=== PATIENT | male | born 1985 | race Hispanic/Latino ===

== ENCOUNTER 2022-12-28 04:04 | Emergency (ER) | payer OTHER, SELFPAY ==
--- OUTSIDE RECORDS SUMMARY | 2022-12-28 04:06 | XMS REPORT | Continuity of Care Document ---
:[address] [facility] t Address [address] [place] [address] Care Team Providers Name Role Phone Jey Hernandez MD Attending Clinician JEY HERNANDEZ Attending Clinician Unavailable Doctor Unassigned, [place] Attending Clinician Unavailable Problems This patient has no known problems. Allergies, Adverse Reactions, Alerts Allergy Allergy Status Severity Reaction(s) Onset Inactive Treating Comm ents Source Name Type Date Date Clinician NO KNOWN Drug Active Univers ALLERGIE Class ity of [facility] Social History Social Habit Start Date Stop Date Quantity Comments Source Sex Assigned At Uni [facility] Exposure to SARS-CoV-2 Not sure [facility] Smoking Status Start Date Stop Date Source Current some day smoker 2016-03-08 00:00:00 [facility] Medications Ordered Filled Start Stop Current Ordering Indication Dosage Frequency Signature Comments Components Source Medication Medication Date Date Medication? Clinician (SIG) Name Name tobramycin 2020-0 2020- No [id number] 2[drp] Place 2 Univers 0.3 % 06-22 [id number] Drops in ity of ophthalmic 00:00: 04:59 right eye [place] drops 00 :00 2 (two) Medical times Branch daily for 5 days. Continue until you follow up with eye doctor. benzonatate 2016-0 Yes 100mg Take 1 Uni vers (TESSALON 5-07 capsule by ity of PERLES) 100 00:00: mouth 3 Ruperto as mg capsule 00 (three) Medica l times Branch daily as needed for Cough. benzonatate 2016-0 Yes 100mg Take 1 Uni vers (TESSALON 5-07 capsule by ity of [place]) 100 00:00: mouth 3 Ruperto as mg capsule 00 (three) Medica l times Branch daily as needed for Cough. Vital Signs Vital Name Observation Time Observation Value Comments Source Systolic blood 2020-06-22 12:25:00 119 mm[Hg] Univer sity of pressure [facility] Diastolic blood 2020-06-22 12:25:00 80 mm[Hg] Unive rsity of pressure [facility] Heart rate 2020-06-22 12:25:00 57 /min Universi ty [facility] Body temperature 2020-06-22 12:25:00 36.39 Mariela [facility] Respiratory rate 2020-06-22 12:25:00 18 /min [facility] Body weight 2020-06-22 12:25:00 74.844 kg Universi ty [facility] BMI 2020-06-22 12:25:00 238.66 kg/m2 [facility] O[facility] saturation in 2020-06-22 12:25:00 100 /min [facility] blood by [facility] Pulse oximetry Branch Procedures Procedure Date / Time Performed Performing Clinician Sour e NOTICE OF PRIVACY 2020-06-22 12:14:06 Doctor Unassigned, No [facility] PRACTICES Name [facility] Branch CONSENT/REFUSAL FOR 2020-06-22 12:13:56 Doctor Unassigned, No [facility] DIAGNOSIS AND Name Medical Branch TREATMENT Encounters Start End Encounter Admission Attending Care Care Encounter Source Date/Time Date/Time Type Type Clinicians Facility Department ID 2020-06-22 2020-06-22 Emergency [facility] [id number] Univers 07:26:00 08:41:00 Jey Vicente [id number] i ty of [place] [id number] [facility] [id number] [facility] 084 Branch 2020-06-22 2020-06-22 Emergency X [facility] ERT [id number] Univers 07:26:00 07:26:00 JEY harvey of [facility] 2020-06-22 2020-06-22 Orders Doctor MONSALVE [id number] Univers 00:00:00 00:00:00 Only Unassigned, SUSI [id number] ity of [place] [facility] [id number] [facility] [id number] [facility] 009 Branch Results This patient has no known results.
[2022-12-28] MEDS ORDERED: LIDOCAINE 1% MPF 5 ML VIAL ONE (04:18)
[2022-12-28] MEDS ORDERED: TDAP (DIPHTH,PERTUSS(ACELL),TET VAC) 0.5 ML VIAL IMVAC ONE (04:58)
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
[2022-12-28 05:58] VITALS: TEMP 97.8
[2022-12-28 06:01] VITALS: BP 111/64; O2SAT 94
== END 2022-12-28 05:22 | disposition home or self-care (01) ==
LOC: ER 04:04
PROC: 0HQ1XZZ Repair Face Skin, External Approach (ICD-10-PCS; principal; 2022-12-28)
DX: S01.81XA Laceration without foreign body of other part of head, initial encounter (principal); S01.112A Laceration without foreign body of left eyelid and periocular area, initial encounter; Z23 Encounter for immunization
CPT/HCPCS: 90471; 99283; J2001

== ENCOUNTER 2023-01-03 06:17 | Emergency (ER) | payer SELFPAY ==
--- OUTSIDE RECORDS SUMMARY | 2023-01-03 06:19 | XMS REPORT | Continuity of Care Document ---
:1985 Author Organization [facility] t Address [address] [facility] [address] [place] [address] Care Team Providers Name Role Phone Jey Hernandez MD Attending Clinician JEY HERNANDEZ Attending Clinician Unavailable Doctor Unassigned, [place] Attending Clinician Unavailable Problems This patient has no known problems. Allergies, Adverse Reactions, Alerts Allergy Allergy Status Severity Reaction(s) Onset Inactive Treating Comm ents Source Name Type Date Date Clinician NO KNOWN Drug Active Univers ALLERGIE Class ity of [facility] Social History Social Habit Start Date Stop Date Quantity Comments Source Sex Assigned At Uni [facility] Exposure to SARS-CoV-2 Not sure [facility] Smoking Status Start Date Stop Date Source Current some day smoker 2016-03-08 00:00:00 [facility] Medications Ordered Filled Start Stop Current Ordering Indication Dosage Frequency Signature Comments Components Source Medication Medication Date Date Medication? Clinician (SIG) Name Name tobramycin 2020-0 2020- No [id number] 2[drp] Place 2 Univers 0.3 % 06-22 [id number] Drops in ity of ophthalmic 00:00: 04:59 [...] 12:25:00 119 mm[Hg] Univer sity of pressure [facility] Diastolic blood 2020-06-22 12:25:00 80 mm[Hg] Unive rsity of pressure [facility] Heart rate 2020-06-22 12:25:00 57 /min Universi ty of [facility] Body temperature 2020-06-22 12:25:00 36.39 Mariela [facility] Respiratory rate 2020-06-22 12:25:00 18 /min [facility] Body weight 2020-06-22 12:25:00 74.844 kg Universi ty [facility] BMI 2020-06-22 12:25:00 238.66 [facility] in 2020-06-22 12:25:00 100 /min [facility] blood by [facility] Pulse oximetry Branch Procedures Procedure Date / Time Performed Performing Clinician Sour e NOTICE OF PRIVACY 2020-06-22 12:14:06 Doctor Unassigned, No Univ [facility] Name [facility] Branch CONSENT/REFUSAL FOR 2020-06-22 12:13:56 Doctor Unassigned, No [facility] DIAGNOSIS AND Name Medical Branch TREATMENT Encounters Start End Encounter Admission Attending Care Care Encounter Source Date/Time Date/Time Type Type Clinicians Facility Department ID 2020-06-22 2020-06-22 Emergency [facility] [id number] Univers 07:26:00 08:41:00 Jey Vicente [id number] i ty of [place] [id number] [facility] [id number] [facility] 084 Branch 2020-06-22 2020-06-22 Emergency X [facility] ERT [id number] Univers 07:26:00 07:26:00 JEY harvey of [facility] 2020-06-22 2020-06-22 Orders Doctor MONSALVE [id number] Univers 00:00:00 00:00:00 Only Unassigned, SUSI [id number] ity of [place] [facility] [id number] [facility] [id number] [facility] 009 Branch Results This patient has no known results.
--- NOTE | 2023-01-03 08:05 | EDPHYS ---
Physician Documentation [facility] Name: Stewart Louise Age: 37 yrs Sex: Male : 1985 Arrival Date: 01/03/2023 Time: 06:18 Bed 20 Private MD: ED Physician Amish Kelly HPI: 01/03 08:03 This 37 yrs old Male presents to ER via Ambulatory with complaints of Suture sp3 Removal. 08:03 37-year-old male presents for suture removal for laceration repaired here approximately sp3 1 week ago to the face and chin. Patient has no complications and no complaints at this time.. Historical: - Allergies: 07:31 No Known Allergies; ll1 - PMHx: 07:31 None; ll1 - PSHx: 07:31 None; ll1 - Immunization history:: Adult Immunizations up to date, Last tetanus immunization: up to date. - Social history:: Smoking status: Patient denies any tobacco usage or history of. ROS: 08:03 Constitutional: Negative for fever, chills, and weight loss, Eyes: Negative for injury, sp3 pain, redness, and discharge, ENT: Negative for injury, pain, and discharge, Neck: Negative for injury, pain, and swelling, Neuro: Negative for headache, weakness, numbness, tingling, and seizure. 08:03 All other systems are negative. Exam: 08:03 Constitutional: This is a well developed, well nourished patient who is awake, alert, sp3 and in no acute distress. 08:03 Head/face: Laceration to the right side of the face and chin healing without infection or other abnormality.. Vital Signs: 07:31 BP 120 / 77; Pulse 60; Resp 16; Temp 97.7; Pulse Ox 97% on R/A; Pain 0/10; ll1 MDM: 07:11 Patient medically screened. sp3 08:04 Data reviewed: vital signs, nurses notes. ED course: Sutures removed by nursing staff a sp3 total of 8. I reexamined patient sutures remain and wound is without bleeding or signs of infection. At this time we will discharge patient safely home with general precautions to return for any worsening symptoms.. Administered Medications: No medications were administered Disposition Summary: 01/03/23 08:05 Discharge Ordered Location: Home sp3 Condition: Stable sp3 Diagnosis - Encounter for removal of sutures sp3 Followup: sp3 - With: Private Physician - When: As needed - Reason: Wound Recheck Discharge Instructions: - Discharge Summary Sheet sp3 - Suture Removal, Care After sp3 Forms: - Medication Reconciliation Form sp3 - Thank You Letter sp3 - Antibiotic Education sp3 - Prescription Opioid Use sp3 Signatures: Beth Boggs RN RN ll1 Amish Kelly MD MD sp3
--- NOTE | 2023-01-03 08:05 | ER ---
Nurse's Notes [facility] Name: Stewart Louise Age: 37 yrs Sex: Male : 1985 Arrival Date: 01/03/2023 Time: 06:18 Bed 20 Private MD: Diagnosis: Encounter for removal of sutures Presentation: 01/03 06:52 Chief complaint: Patient states: Patient here for suture removal. [facility] 07:31 Coronavirus screen: Client denies travel out of the [place] in the last 14 days. At this ll1 time, the client does not indicate any symptoms associated with coronavirus-19. Ebola Screen: Patient denies travel to an Ebola-affected area in the 21 days before illness onset. Initial Sepsis Screen: Does the patient meet any 2 criteria? No. Patient's initial sepsis screen is negative. Does the patient have a suspected source of infection? No. Patient's initial sepsis screen is negative. Risk Assessment: Do you want to hurt yourself or someone else? Patient reports no desire to harm self or others. Onset of symptoms was December 28, 2022. 07:31 Method Of Arrival: Ambulatory 1 07:31 Acuity: ANAIS 5 ll1 Triage Assessment: 07:32 General: Appears in no apparent distress. Behavior is calm, cooperative, appropriate ll1 for age, needs stitches removed from R eyebrow and R side of chin. No redness or drainage. No fever. Pain: Denies pain. Derm: Reports suture removal from face. Historical: - Allergies: 07:31 No Known Allergies; ll1 - PMHx: 07:31 None; ll1 - PSHx: 07:31 None; ll1 - Immunization history:: Adult Immunizations up to date, Last tetanus immunization: up to date. - Social history:: Smoking status: Patient denies any tobacco usage or history of. Screenin:33 [facility] ED Fall Risk Assessment (Adult) Score/Fall Risk Level 0 - 2 = Low Risk ll1 Oriented to surroundings, Maintained a safe environment, Educated pt \T\ family on fall prevention, incl call for assistance when getting out of bed, Hourly rounding (assess needs \T\ fall precautionary measures) done. Abuse screen: Denies threats or abuse. Nutritional screening: No deficits noted. Tuberculosis screening: No symptoms or risk factors identified. Assessment: 07:37 Reassessment: No changes from previously documented assessment. Patient and/or family ll1 updated on plan of care and expected duration. Pain level reassessed. Patient is alert, oriented x 3, equal unlabored respirations, skin warm/dry/pink. 08:11 Reassessment: No changes from previously documented assessment. Patient and/or family ll1 updated on plan of care and expected duration. Pain level reassessed. Patient is alert, oriented x 3, equal unlabored respirations, skin warm/dry/pink. Vital Signs: 07:31 BP 120 / 77; Pulse 60; Resp 16; Temp 97.7; Pulse Ox 97% on R/A; Pain 0/10; ll1 ED Course: 06:18 Patient arrived in ED. [id number] 06:47 Darrell Nj RN is Primary Nurse. ke1 07:04 Amish Kelly MD is Attending Physician. sp3 07:05 Arm band placed on. ll1 07:32 Triage completed. ll1 07:33 Patient has correct armband on for positive identification. Bed in low position. Call ll1 light in reach. Side rails up X 1. Cardiac monitoring not applicable on this patient. 07:55 Removal of removed 8 sutures. ha1 08:11 No provider procedures requiring assistance completed. Patient did not have IV access ll1 during this emergency room visit. Administered Medications: No medications were administered Medication: 07:33 VIS not applicable for this client. ll1 Outcome: 08:05 Discharge ordered by . sp3 08:11 Discharged to home ambulatory. ll1 08:11 Condition: stable 08:11 Discharge instructions given to patient, Instructed on discharge instructions, follow up and referral plans. Demonstrated understanding of instructions, follow-up care. 08:11 Patient left the ED. ll1 Signatures: Beth Boggs RN RN ll1 Amish Kelly MD MD sp3 Christa Delgado jj6 Darrell Nj RN RN ke1 Teetee Mclain RN RN ha1 Corrections: (The following items were deleted from the chart) 06:54 06:47 Chief complaint: ke1 ke1
[2023-01-03 08:15] VITALS: BP 120/77; TEMP 97.7; O2SAT 97
== END 2023-01-03 08:11 | disposition home or self-care (01) ==
LOC: ER 06:17
DX: Z48.02 Encounter for removal of sutures (principal)
CPT/HCPCS: 99281